=== PATIENT | male | born 1990 | race American Indian/Alaskan Native ===

== ENCOUNTER 2020-07-13 15:08 | Emergency (ER) | payer SELFPAY ==
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
[2020-07-13] MEDS ORDERED: TETRACAINE 0.5% OPHTH SOLN 4ML OU ONE (19:19)
[2020-07-13] MEDS ORDERED: AMOXICILLIN/K CLAV 875/125MG TAB PO ONE (19:19)
[2020-07-13] MEDS ORDERED: IBUPROFEN 600 MG TAB PO ONE (19:20)
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
[2020-07-13] MEDS ORDERED: FLUORESCEIN 1 MG STRIP OP ONE (20:22)
[2020-07-14 01:38] VITALS: BP 138/88
== END 2020-07-14 01:00 | disposition home or self-care (01) ==
LOC: ED 15:08 → EEVIPCON 15:08 → ED 07-14 01:00
DX: S41.052A Open bite of left shoulder, initial encounter (principal); S05.01XA Injury of conjunctiva and corneal abrasion without foreign body, right eye, initial encounter; Y04.1XXA Assault by human bite, initial encounter; Y93.89 Activity, other specified; Y92.89 Other specified places as the place of occurrence of the external cause; Y99.8 Other external cause status
CPT/HCPCS: 70450; 70486